=== PATIENT | female | born 1990 | race Caucasian/White ===

== ENCOUNTER 2024-12-26 17:22 | Emergency (ER) | payer MEDICAID ==
[~2024-12-26] VITALS: Ht 157.5 cm; Wt 62.1 kg
[2024-12-26] MEDS ORDERED: ALBU8.5H8 INH (18:11)
[2024-12-26] MEDS ORDERED: PSEU120T83 PO (18:11)
[2024-12-26 18:16] VITALS: BP 122/70; TEMP 98; O2SAT 98
== END 2024-12-26 18:17 | disposition home or self-care (01) ==
LOC: ER 17:41
DX: R09.81 Nasal congestion (principal); R07.89 Other chest pain; R05.9 Cough, unspecified; Z91.030 Bee allergy status